=== PATIENT | female | born 1970 | race African-American/Black ===

== ENCOUNTER 2016-08-27 12:07 | Emergency (ER) | payer OTHER ==
[~2016-08-27] VITALS: Ht 160 cm; Wt 91.0 kg
[~2016-08-27 12:07] MED LIST: ATARAX,VISTARIL25 MG PO; CIPRO500 MG PO; CLONAZEPAM1 MG PO; DAILY MULTIPLE1 EACH PO; DICYCLOMINE HCL20 MG PO; FLAGYL500 MG PO; GEODON20 MG PO; KENALOG,ARISTOC15 G2 TP; LEXAPRO20 MG PO; NORCO 5/3251 TABLET PO; PREDNISONE10 M1 PO; TRAZODONE HCL50 MG PO
[2016-08-27 13:06] LABS: ADD MIUA? YES; BILIRUBIN NEGATIVE; BLOOD NEGATIVE; COLOR YELLOW ((YELLOW)); GLUCOSE (STRIP) NEGATIVE; KETONES 5; LEUKOCYTES NEGATIVE; NITRITE NEGATIVE; PROTEIN (STRIP) NEGATIVE; SPECIFIC GRAVITY 1.019 (1.000-1.030); UROBILINOGEN 0.2 MG/DL (0.2-1.0)
[2016-08-27 13:15] LABS: BACTERIA RARE /HPF; EPITHELIAL CELLS 1+ /HPF; HYALINE CASTS 0-5 /LPF; MUCUS TRACE /LPF; RED BLOOD CELLS 0-5 /HPF (0-5); UCUL ADDED? NO; WHITE BLOOD CELLS 0-5 /HPF (0-5)
[2016-08-27 13:28] LABS: HEMATOCRIT 36.9 % (36.0-46.0); MCH 27.5 PG (29.0-34.0); MCHC 33.3 G/DL (30.0-36.0); MCV 82.6 FL (83-99); MEAN PLAT.VOLUME 9.9 uM^3 (9.5-12.4); PLATELET COUNT 373 K/uL (156-360); RBC DIS.WIDTH-CV 14.3 % (11.8-14.6); RBC DIS.WIDTH-SD 42.4 % (39-53); RED BLOOD COUNT 4.47 M/uL (3.80-5.20); WHITE BLOOD COUNT 4.3 K/uL (4.1-10.2)
[2016-08-27 13:43] LABS: CHLORIDE 107 mEq/L (99-109); POTASSIUM 4.3 mEq/L (3.7-5.4); SODIUM 139 mEq/L (136-147)
[2016-08-27 13:45] LABS: GLUCOSE 95 mg/dL (70-99)
[2016-08-27 13:47] LABS: ANION GAP 8 MEQ/L (2-14)
[2016-08-27 13:49] LABS: GFR ESTIMATE (CALCULATED) > 59 mL/min/
[2016-08-27 13:50] LABS: UREA NITROGEN (BUN) 6 mg/dL (9-23)
[2016-08-27] MEDS ORDERED: ZOFRAN ODT4 MG PO (15:42)
[2016-08-27 16:21] VITALS: BP 119/72
[2016-08-28] MEDS ORDERED: MIRALAX17 GM PO (14:51)
[2016-08-28] MEDS ORDERED: COLACE100 MG PO (14:51)
[2016-08-28] MEDS ORDERED: NORCO 5/3251 TABLET PO (14:51)
== END 2016-08-27 16:22 | disposition home or self-care (01) ==
LOC: EME 12:07
DX: R11.2 Nausea with vomiting, unspecified (principal); R10.32 Left lower quadrant pain; R10.12 Left upper quadrant pain; M54.9 Dorsalgia, unspecified; R35.0 Frequency of micturition; K59.00 Constipation, unspecified; F17.200 Nicotine dependence, unspecified, uncomplicated
CPT/HCPCS: 74020; 80048; 81003; 85027; 99281; 99284

== ENCOUNTER 2016-08-28 12:19 | Emergency (ER) | payer OTHER ==
[~2016-08-28] VITALS: Ht 160 cm; Wt 90.9 kg
[~2016-08-28 12:19] MED LIST changes: +ZOFRAN ODT4 MG PO
[2016-08-28 13:29] LABS: EOSINOPHIL (%) 2.8 % (0-5); EOSINOPHIL COUNT 0.1 K/uL (0-0.3); HEMATOCRIT 38.7 % (36.0-46.0); LYMPHOCYTE COUNT 1.4 K/uL (1.0-2.8); MCV 84.1 FL (83-99); MONOCYTE (%) 8.8 % (3-12); MONOCYTE COUNT 0.4 K/uL (0-0.8); NEUTROPHIL COUNT 2.1 K/uL (1.8-6.4); PLATELET COUNT 376 K/uL (156-360); RBC DIS.WIDTH-CV 14.6 % (11.8-14.6); RBC DIS.WIDTH-SD 44.2 % (39-53)
[2016-08-28 13:31] LABS: ADD MIUA? YES; BILIRUBIN NEGATIVE; BLOOD NEGATIVE; COLOR YELLOW ((YELLOW)); GLUCOSE (STRIP) NEGATIVE; KETONES NEGATIVE; LEUKOCYTES NEGATIVE; NITRITE NEGATIVE; PROTEIN (STRIP) NEGATIVE; SPECIFIC GRAVITY 1.018 (1.000-1.030); UROBILINOGEN 0.2 MG/DL (0.2-1.0)
[2016-08-28 13:40] LABS: CHLORIDE 106 mEq/L (99-109); POTASSIUM 4.2 mEq/L (3.7-5.4); SODIUM 139 mEq/L (136-147)
[2016-08-28 13:42] LABS: GLUCOSE 88 mg/dL (70-99)
[2016-08-28 13:44] LABS: ANION GAP 9 MEQ/L (2-14); TOTAL BILIRUBIN 0.4 mg/dL (0.0-1.0)
[2016-08-28 13:46] LABS: ALKALINE PHOSPHATASE 20 IU/L (3-129); GFR ESTIMATE (CALCULATED) > 59 mL/min/
[2016-08-28 13:47] LABS: UREA NITROGEN (BUN) 5 mg/dL (9-23)
[2016-08-28 13:49] LABS: LIPASE 13 U/L (1.0-51.0)
[2016-08-28 13:55] LABS: BACTERIA RARE /HPF; EPITHELIAL CELLS 3+ /HPF; MUCUS TRACE /LPF; RED BLOOD CELLS NONE SEEN /HPF (0-5); WHITE BLOOD CELLS 0-5 /HPF (0-5)
[2016-08-28] MEDS ORDERED: NORCO 5/3251 TABLET PO (14:51)
[2016-08-28] MEDS ORDERED: COLACE100 MG PO (14:51)
[2016-08-28] MEDS ORDERED: MIRALAX17 GM PO (14:51)
[2016-08-28 14:59] VITALS: BP 130/90
== END 2016-08-28 15:00 | disposition home or self-care (01) ==
LOC: EME 12:19
PROVIDERS: Physician Assistant
DX: R10.9 Unspecified abdominal pain (principal); K58.9 Irritable bowel syndrome, unspecified; F31.9 Bipolar disorder, unspecified; F17.200 Nicotine dependence, unspecified, uncomplicated
CPT/HCPCS: 74176; 80053; 81003; 83690; 85025; 99281; 99284; J3010

== ENCOUNTER 2017-09-21 12:22 | Inpatient (IN) | payer OTHER ==
[~2017-09-21] VITALS: Ht 157.5 cm; Wt 88.1 kg
[~2017-09-21 12:22] MED LIST changes: +COLACE100 MG PO; +MIRALAX17 GM PO
[2017-09-21 13:12] LABS: HEMOGLOBIN 12.9 G/DL (11.9-15.5); MCH 28.2 PG (29.0-34.0); MCHC 33.9 G/DL (30.0-36.0); MCV 83.2 FL (83-99); PLATELET COUNT 472 K/uL (156-360); RBC DIS.WIDTH-CV 14.8 % (11.8-14.6); RED BLOOD COUNT 4.57 M/uL (3.80-5.20); WHITE BLOOD COUNT 7.4 K/uL (4.1-10.2)
[2017-09-21 13:21] LABS: CHLORIDE 97 mEq/L (99-109)
[2017-09-21 13:22] LABS: POTASSIUM 2.8 mEq/L (3.7-5.4); SODIUM 139 mEq/L (136-147)
[2017-09-21 13:23] LABS: GLUCOSE 110 mg/dL (70-99)
[2017-09-21 13:26] LABS: SERUM ETHYL ALCOHOL < 10 mg/dL
[2017-09-21 13:27] LABS: CREATININE 0.7 mg/dL (0.6-1.3); GFR ESTIMATE (CALCULATED) > 59 mL/min/
[2017-09-21 13:28] LABS: UREA NITROGEN (BUN) 2 mg/dL (9-23)
[2017-09-21 13:33] LABS: TROP-I INTERPRETATION NEGATIVE; TROPONIN-I < 0.01 ng/mL (0.0-0.30)
[2017-09-21 13:35] LABS: QUANTITATIVE HCG < 4.0 MIU/ML
[2017-09-21 14:05] LABS: ACETAMINOPHEN (TYLENOL) < 10 mcg/mL (10-30); LIPASE 20 U/L (1.0-51.0); SALICYLATE < 5.0 MG/DL (15-30)
[2017-09-21 15:03] LABS: AMPHETAMINE NEGATIVE (500 ng/mL); BARBITURATES NEGATIVE (200 ng/mL); BENZODIAZEPINES NEGATIVE (150 ng/mL); BUPRENORPHINE NEGATIVE (10 ng/mL); COCAINE PRESUMPTIVE POSITIVE (150 ng/mL); METHADONE NEGATIVE (200 ng/mL); METHAMPHETAMINE NEGATIVE (500 ng/mL); OPIATES (MORPHINE) NEGATIVE (100 ng/mL); OXYCODONE NEGATIVE (100 ng/mL); PHENCYCLIDINE NEGATIVE (25 ng/mL); PROPOXYPHENE NEGATIVE (300 ng/mL); THC CANNABINOIDS NEGATIVE (50 ng/mL); TRICYCLIC ANTIDEPRESSANTS NEGATIVE (300 ng/mL)
[2017-09-21 15:22] LABS: TROP-I INTERPRETATION NEGATIVE; TROPONIN-I < 0.01 ng/mL (0.0-0.30)
[2017-09-21] MEDS ORDERED: LAMOTRIGINE100 MG PO (19:15)
[2017-09-21] MEDS ORDERED: ESCITALOPRAM OX20 MG PO (19:16)
[2017-09-21] MEDS ORDERED: SILENOR3 MG PO (19:18)
[2017-09-21] MEDS ORDERED: ATARAX,VISTARIL25 MG PO (19:20)
[2017-09-21] MEDS ORDERED: KLONOPIN1 MG PO (19:20)
[2017-09-21 19:55] VITALS: BP 115/90
[2017-09-22 08:02] VITALS: BP 130/71
[2017-09-22 15:30] VITALS: BP 107/55
[2017-09-23 08:02] VITALS: BP 126/77
[2017-09-23 15:37] VITALS: BP 136/75
[2017-09-24 07:41] VITALS: BP 133/99
[2017-09-24 15:26] VITALS: BP 125/76
[2017-09-25 07:56] VITALS: BP 126/73
[2017-09-25 16:08] VITALS: BP 124/74
[2017-09-26 08:04] VITALS: BP 124/85
[2017-09-26 15:38] VITALS: BP 145/87
[2017-09-27 07:48] VITALS: BP 136/86
[2017-09-27 15:33] VITALS: BP 135/89
[2017-09-28 07:51] VITALS: BP 140/81
[2017-09-28] MEDS ORDERED: LORATADINE10 M2 PO (10:07)
[2017-09-28] MEDS ORDERED: RISPERDAL3 MG PO (10:09)
[2017-09-28] MEDS ORDERED: SINEQUAN25 MG PO (10:09)
[2017-09-28] MEDS ORDERED: ESCITALOPRAM OX20 MG PO (10:11)
[2017-09-28] MEDS ORDERED: RISPERDAL25 MG/2 ML IM (13:03)
== END 2017-09-28 11:20 | disposition home or self-care (01) | DRG 885 ==
LOC: EME 12:22 → EDOF 18:25 → 1WEST 18:25 → ENRESERV 19:46 → 1WEST 19:46
PROVIDERS: Emergency Medicine
DX: F20.0 Paranoid schizophrenia (principal); F33.9 Major depressive disorder, recurrent, unspecified; F14.10 Cocaine abuse, uncomplicated; F17.210 Nicotine dependence, cigarettes, uncomplicated; R63.0 Anorexia; E87.6 Hypokalemia; F09 Unspecified mental disorder due to known physiological condition; Z60.2 Problems related to living alone; F41.9 Anxiety disorder, unspecified; Z90.710 Acquired absence of both cervix and uterus; Z88.5 Allergy status to narcotic agent; Z88.6 Allergy status to analgesic agent; Z91.14 Patient's other noncompliance with medication regimen; Z91.5 Personal history of self-harm; Z81.8 Family history of other mental and behavioral disorders
CPT/HCPCS: 71046; 80048; 83690; 84484; 84702; 84999; 85027; 90839; 93005; 97150 GO; 97165 GO; 99281; 99285; G0480; J2794; Q0177